=== PATIENT | female | born 1965 | race Caucasian/White ===

== ENCOUNTER → 2017-03-22 | Outpatient (CLI) | payer BC | LOC: FIMAGING 09:10 | PROVIDERS: ATTEND Orthopaedic Surgery Orthopaedic Surgery of the Spine ==

== ENCOUNTER → 2017-09-18 | Outpatient (CLI) | payer BC | LOC: CIMAGING 12:15 | PROVIDERS: ATTEND Orthopaedic Surgery Orthopaedic Surgery of the Spine | DX: Z09 Encounter for follow-up examination after completed treatment for conditions other than malignant neoplasm (principal); Z98.1 Arthrodesis status | CPT/HCPCS: 72100-PO ==